=== PATIENT | female | born 1975 | race Two or more races ===

== ENCOUNTER 2024-12-29 12:02 | Inpatient (IN) | payer OTHER ==
[~2024-12-29] VITALS: Ht 160 cm; Wt 141.1 kg
[2024-12-29] MEDS ORDERED: LAMICTAL100 M1 PO (13:40)
[2024-12-29] MEDS ORDERED: CELEXA40 MG PO (13:40)
[2025-01-06] MEDS ORDERED: BUPIVACAINE HCL/MPF 0.5% 30ML VIAL ONE (10:08)
[2025-01-06] MEDS ORDERED: LIDOCAINE HCL 1%/EPINEPHRINE 20ML VIAL IJ ONE (10:08)
[2025-01-06] MEDS ORDERED: METRONIDAZOLE/SODIUM CHLORIDE 500 MG/100 ML PIGGYBACK IV ONE ×2 (10:08→16:24)
[2025-01-06] MEDS ORDERED: CEFTRIAXONE SODIUM 2,000 MG VIAL ONE (10:08)
[2025-01-06] MEDS ORDERED: SUGAMMADEX SODIUM 200 MG/2 ML VIAL IV ONE (13:43)
[2025-01-06] MEDS ORDERED: MORPHINE SULFATE 4 MG/ML CARTRIDGE IV PRN (14:15)
[2025-01-06] MEDS ORDERED: ONDANSETRON HCL 2 MG/ML VIAL IV PRN (14:15)
[2025-01-06] MEDS ORDERED: DEXTROSE 50 % IN WATER 0.5 G/ML VIAL IV PRN (14:15)
[2025-01-06] MEDS ORDERED: OxyCODONE HCL 5 MG TABLET (ROXICODONE) PO PRN (14:15)
[2025-01-06] MEDS ORDERED: 0.9 % SODIUM CHLORIDE 1,000 ML IV SCH (14:15)
[2025-01-06] MEDS ORDERED: MORPHINE SULFATE 4 MG/ML VIAL IV ONE (15:25)
[2025-01-06] MEDS ORDERED: KETOROLAC TROMETHAMINE 30 MG VIAL ONE (16:15)
[2025-01-06] MEDS ORDERED: HYOSCYAMINE SULFATE 0.125 MG TAB.SUBL SL SCH (17:00)
[2025-01-06] MEDS ORDERED: POLYETHYLENE GLYCOL 3350 17 GM BLIST.PACK PO SCH (17:00)
[2025-01-06] MEDS ORDERED: GABAPENTIN 300 MG CAPSULE PO SCH (17:00)
[2025-01-06] MEDS ORDERED: METRONIDAZOLE/SODIUM CHLORIDE 500 MG/100 ML PIGGYBACK IV SCH (17:00)
[2025-01-06 17:12] LABS: BASO % 0.2 % (0.1-1.2); HEMATOCRIT 38.6 % (34.1-44.9); HEMOGLOBIN 12.5 g/dL (11.2-15.7); LYMPH # 0.79 (1.18-3.74); LYMPH % 5.9 % (19.3-53.1); MONO % 3.8 % (4.7-12.5); NEUT # 11.93 (1.56-6.13); NEUT % 89.8 % (34.0-71.1); PLATELET COUNT 230 K/uL (163-369); RED BLOOD COUNT 4.16 M/uL (3.93-5.22); RED CELL DISTRIBUTION WIDTH 14.1 % (11.6-14.4)
[2025-01-06 17:25] VITALS: BP 108/68; O2SAT 96
[2025-01-06 17:48] LABS: ALBUMIN 3.1 gm/dL (3.4-5.0); CALCIUM 8.4 mg/dL (8.5-10.1); CREATININE SERUM 0.59 mg/dL (0.55-1.02); GFR 107.89; MAGNESIUM 1.5 mg/dL (1.8-2.4); PHOSPHOROUS 2.8 mg/dL (2.5-4.9); POTASSIUM 4.07 mEq/L (3.5-5.1)
[2025-01-06 17:49] LABS: ABG PH 7.327 (7.35-7.45); ABG PO2 109.5 mmHg (80-100); ABG pCO2 44.6 mmHg (35-45); SaO2 97.7 %
[2025-01-06 17:50] LABS: BASE EXCESS -3.3 mmol/l; BICARBONATE 22.8 mmol/l (23-25); Tco2 24.2 mmol/l; allen test SATISFACTORY; mode NASAL CANNULA; o2 28 %; puncture site RADIAL LEFT
[2025-01-06 18:40] VITALS: O2SAT 98
[2025-01-06] MEDS ORDERED: ACETAMINOPHEN 500 MG GEL..CAP PO SCH (20:00)
[2025-01-06] MEDS ORDERED: CELECOXIB 200 MG CAPSULE PO SCH (21:00)
[2025-01-06] MEDS ORDERED: FAMOTIDINE/PF 20 MG/2 ML VIAL IV PUSH SCH (21:00)
[2025-01-07] VITALS (9 sets, daily range): BP systolic 92–110; BP diastolic 55–64; O2SAT 95–100
[2025-01-07 06:55] LABS: ALBUMIN 2.6 gm/dL (3.4-5.0); CALCIUM 8.1 mg/dL (8.5-10.1); CREATININE SERUM 0.39 mg/dL (0.55-1.02); GFR 173.96; MAGNESIUM 1.8 mg/dL (1.8-2.4); PHOSPHOROUS 2.4 mg/dL (2.5-4.9); POTASSIUM 3.99 mEq/L (3.5-5.1)
[2025-01-07 07:12] LABS: BASO % 0.2 % (0.1-1.2); HEMATOCRIT 35.9 % (34.1-44.9); HEMOGLOBIN 11.5 g/dL (11.2-15.7); LYMPH % 11.8 % (19.3-53.1); MEAN CORPUSCULAR HEMOGLOBIN 29.3 pg (25.6-32.2); MONO # 0.79 (0.24-0.82); MONO % 7.1 % (4.7-12.5); NEUT % 80.5 % (34.0-71.1); PLATELET COUNT 208 K/uL (163-369); RED BLOOD COUNT 3.93 M/uL (3.93-5.22)
[2025-01-07] MEDS ORDERED: LAMICTAL 100 MG PO SCH (09:00)
[2025-01-07] MEDS ORDERED: CELEXA 40 MG PO SCH (09:00)
[2025-01-07] MEDS ORDERED: POTASSIUM PHOS,M-BASIC-D-BASIC 3 MM/ML VIAL IV NR (12:00)
[2025-01-07] MEDS ORDERED: ENOXAPARIN SODIUM 40 MG/0.4 ML SYRINGE SUBCUTANEO SCH (17:00)
[2025-01-07] MEDS ORDERED: GABAPENTIN 100 MG CAPSULE PO SCH (17:00)
[2025-01-07] MEDS ORDERED: GABAPENTIN 300 MG CAPSULE PO SCH (21:00)
[2025-01-08] VITALS (8 sets, daily range): BP systolic 113–117; BP diastolic 62–70; O2SAT 83–100
[2025-01-08 08:03] LABS: BASO % 0.2 % (0.1-1.2); EOS % 1.2 % (0.7-7.0); HEMATOCRIT 35.5 % (34.1-44.9); HEMOGLOBIN 11.4 g/dL (11.2-15.7); LYMPH % 16.6 % (19.3-53.1); MONO # 0.71 (0.24-0.82); MONO % 8.4 % (4.7-12.5); NEUT # 6.16 (1.56-6.13); NEUT % 73.4 % (34.0-71.1); PLATELET COUNT 210 K/uL (163-369); RED CELL DISTRIBUTION WIDTH 14.3 % (11.6-14.4)
[2025-01-08 08:13] LABS: ALBUMIN 2.6 gm/dL (3.4-5.0); CALCIUM 8.3 mg/dL (8.5-10.1); CREATININE SERUM 0.37 mg/dL (0.55-1.02); GFR 184.86; MAGNESIUM 1.9 mg/dL (1.8-2.4); POTASSIUM 3.8 mEq/L (3.5-5.1)
[2025-01-08] MEDS ORDERED: ENOXAPARIN SODIUM 40 MG/0.4 ML SYRINGE SUBCUTANEO SCH (09:00)
[2025-01-08 10:12] LABS: PHOSPHOROUS 1.6 mg/dL (2.5-4.9)
[2025-01-08] MEDS ORDERED: POTASSIUM PHOS,M-BASIC-D-BASIC 3 MM/ML VIAL IV NR (12:00)
[2025-01-08] MEDS ORDERED: NAPH,MB-DB/K PH,MBDB 1 PKT PACKET PO SCH (12:00)
[2025-01-09 01:33] VITALS: BP 111/64; O2SAT 95
[2025-01-09 02:12] VITALS: O2SAT 90
[2025-01-09 06:04] VITALS: O2SAT 90
[2025-01-09 07:23] LABS: CALCIUM 8.2 mg/dL (8.5-10.1); CREATININE SERUM 0.41 mg/dL (0.55-1.02); GFR 164.21; MAGNESIUM 1.8 mg/dL (1.8-2.4); PHOSPHOROUS 2.3 mg/dL (2.5-4.9); POTASSIUM 3.83 mEq/L (3.5-5.1)
[2025-01-09 08:30] VITALS: BP 105/70; O2SAT 97
[2025-01-09] MEDS ORDERED: INTESTINEX680 M1 PO (13:07)
[2025-01-09] MEDS ORDERED: NEURONTIN300 MG PO (13:08)
[2025-01-09] MEDS ORDERED: CELECOXIB200 MG PO (13:08)
== END 2025-01-09 22:10 | disposition home or self-care (01) | DRG 331 ==
LOC: O/R 01-06 08:48 → SURH 01-06 08:48
PROVIDERS: Internal Medicine; Internal Medicine Geriatric Medicine; ADMIT Surgery; ATTEND Surgery
PROC: 0DBP4ZZ Excision of Rectum, Percutaneous Endoscopic Approach (ICD-10-PCS; 2025-01-06)
PROC: 07BC4ZZ Excision of Pelvis Lymphatic, Percutaneous Endoscopic Approach (ICD-10-PCS; 2025-01-06)
PROC: 0DJD8ZZ Inspection of Lower Intestinal Tract, Via Natural or Artificial Opening Endoscopic (ICD-10-PCS; 2025-01-06)
PROC: 4A12X4Z Monitoring of Cardiac Electrical Activity, External Approach (ICD-10-PCS; 2025-01-06)
PROC: 0DTN4ZZ Resection of Sigmoid Colon, Percutaneous Endoscopic Approach (ICD-10-PCS; principal; 2025-01-06 13:15)
DX: C20 Malignant neoplasm of rectum (principal); R19.5 Other fecal abnormalities; R59.0 Localized enlarged lymph nodes; N73.6 Female pelvic peritoneal adhesions (postinfective); N99.4 Postprocedural pelvic peritoneal adhesions; G47.30 Sleep apnea, unspecified